=== PATIENT | female | born 1930 | race Asian ===

== ENCOUNTER 2018-02-18 19:55 | Inpatient (IN) | payer MEDICARE, MEDICAID ==
--- NOTE | 2018-02-18 20:26 | ED Physician Chart ---
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 Patient stated that she tripped and fell while moving a chair. She denied loss of consciousness. She had a tender spot on the right parietal area with a pain level of 5/10. The right chest cage pain level was 7/10. Allergies:: Allergies Allergy/AdvReac Type Severity Reaction Status Date / Time Penicillins Allergy Verified 02/18/18 20:05 Vitals:: Vital Signs - 8 hr 02/18/18 19:55 Temp 98.6 F HR 60 RR 18 BP 138/67 O2 Sat % 96 ED Review of Systems - Review of Systems General/Constitutional: No fever, No chills Skin: Bruising Head: Headache Eyes: No pain ENT: No nasal drainage Neck: No neck pain Cardio Vascular: Chest pain Pulmonary: No SOB GI: No nausea, No vomiting Musculoskeletal: Bone or joint pain Neurological: Weakness ED Past Medical History - Past Medical History Past Medical History: HTN, CVA/TIA, PUD/GERD, Other (Dysphagia, falls) Social History: Non Smoker, No Alcohol, No Drug Use Family Medical History - Family Member Mother History Unknown: Yes Ethnicity: Non- Hx Family Cancer: Yes Hx Family Hypertension: Yes ED Physical Exam - Physical Examination General/Constitutional: Awake, Alert Other Head comments:: A tender hematoma on the right parietal scalp Eyes: PERRL Skin: Well hydrated ENMT: Nasal exam nl Neck: No nuchal rigidity Respiratory: Clear to Auscultation Other Respiratory comments:: right lateral chest wall tenderness Cardio Vascular: RRR, No murmur, gallop, rubs, NL S1 S2 GI: No tenderness/rebounding/guarding Extremities: normal strength in all extremities Other Neuro/Psych comments:: unsteady gait ED Labs/Radiology/EKG Results - Lab Results Results: Laboratory Last Values WBC 8.7 Th/cmm (4.8-10.8) 02/19/18 05:50 RBC 4.14 Mil/cmm (3.80-5.20) 02/19/18 05:50 Hgb 12.8 gm/dL (12-16) 02/19/18 05:50 Hct 36.3 % (41.0-60) L 02/19/18 05:50 MCV 87.8 fl (81-100) 02/19/18 05:50 MCH 31.1 pg (27.0-31.0) H 02/19/18 05:50 MCHC Differential 35.4 pg (28.0-36.0) 02/19/18 05:50 RDW 11.2 % (11.5-20.0) L 02/19/18 05:50 Plt Count 152 Th/cmm (150-400) 02/19/18 05:50 MPV 7.6 fl 02/19/18 05:50 Neutrophils % 73.3 % (40.0-80.0) 02/19/18 05:50 Lymphocytes % 17.1 % (20.0-50.0) L 02/19/18 05:50 Monocytes % 8.0 % (2.0-10.0) 02/19/18 05:50 Eosinophils % 1.1 % (0.0-5.0) 02/19/18 05:50 Basophils % 0.5 % (0.0-2.0) 02/19/18 05:50 Sodium 138 mEq/L (136-145) 02/19/18 05:50 Potassium 4.1 mEq/L (3.5-5.1) 02/19/18 05:50 Chloride 106 mEq/L (98-107) 02/19/18 05:50 Carbon Dioxide 25.0 mEq/L (21.0-31.0) 02/19/18 05:50 Anion Gap 11.1 (7.0-16.0) 02/19/18 05:50 BUN 14 mg/dL (7-25) 02/19/18 05:50 Creatinine 0.6 mg/dL (0.6-1.2) 02/19/18 05:50 Est GFR ( Amer) TNP 02/19/18 05:50 Est GFR (Non-Af Amer) TNP 02/19/18 05:50 BUN/Creatinine Ratio 23.3 02/19/18 05:50 Glucose 139 mg/dL (70-105) H 02/19/18 05:50 Calcium 9.2 mg/dL (8.6-10.3) 02/19/18 05:50 Total Bilirubin 0.6 mg/dL (0.3-1.0) 02/19/18 05:50 AST 17 U/L (13-39) 02/19/18 05:50 ALT 18 U/L (7-52) 02/19/18 05:50 Alkaline Phosphatase 93 U/L (34-104) 02/19/18 05:50 Troponin I < 0.01 ng/mL (0.01-0.05) L 02/18/18 20:35 B-Natriuretic Peptide 26.0 pg/mL (5.0-100.0) 02/18/18 20:35 Total Protein 6.2 gm/dL (6.0-8.3) 02/19/18 05:50 Albumin 3.9 gm/dL (3.7-5.3) 02/19/18 05:50 Globulin 2.3 gm/dL 02/19/18 05:50 Albumin/Globulin Ratio 1.7 (1.0-1.8) 02/19/18 05:50 Triglycerides 309 mg/dL (<150) H 02/19/18 05:50 Cholesterol 170 mg/dL (<200) 02/19/18 05:50 LDL Cholesterol Direct 80 mg/dL (75-193) 02/19/18 05:50 HDL Cholesterol 34 mg/dL (23-92) 02/19/18 05:50 TSH 0.76 uIU/ml (0.34-5.60) 02/19/18 05:50 Urine Source RANDOM 02/18/18 21:20 Urine Color YELLOW 02/18/18 21:20 Urine Clarity CLEAR (CLEAR) 02/18/18 21:20 Urine pH 7.0 (4.6 - 8.0) 02/18/18 21:20 Ur Specific [place] 1.010 (1.005-1.030) 02/18/18 21:20 Urine Protein NEGATIVE mg/dL (NEGATIVE) 02/18/18 21:20 Urine Glucose (UA) NEGATIVE mg/dL (NEGATIVE) 02/18/18 21:20 Urine Ketones NEGATIVE mg/dL (NEGATIVE) 02/18/18 21:20 Urine Blood TRACE (NEGATIVE) 02/18/18 21:20 Urine Nitrate NEGATIVE (NEGATIVE) 02/18/18 21:20 Urine Bilirubin NEGATIVE (NEGATIVE) 02/18/18 21:20 Urine Urobilinogen 0.2 E.U./dL (0.2 - 1.0) 02/18/18 21:20 Ur Leukocyte Esterase NEGATIVE (NEGATIVE) 02/18/18 21:20 Urine RBC 2-5 /hpf (0-5) 02/18/18 21:20 Urine WBC 0-2 /hpf (0-5) 02/18/18 21:20 Ur Epithelial Cells FEW /lpf (FEW) 02/18/18 21:20 Urine Bacteria OCCASIONAL /hpf (NONE SEEN) 02/18/18 21:20 - Radiology Results Results: CT head wo contrast: right parietal scalp hematoma CT chest wo contrast: No acute fracture of chest ribs - EKG Interpretations EKG Time:: 20:38 Rate & Rhythm: 64 bpm, sinus rhythm [place]: normal P axis Intervals: MD 187, QRS 98 ED Assessment - Assessment General Assessment: Right parietal scalp hematoma Right chest wall pain, ruled out rib fracture Frequent falls likely due to unsteady gait Assessment/Comments:: CBC, CMP, UA CT head wo contrast CT chest wo contrast ED Septic Shock - . Is Septic Shock (SBP<90, OR Lactate>4 mmol\L) present?: No - <6hrs of presentation: Vital Signs: Vital Signs - 8 hr 02/18/18 19:55 Temp 98.6 F HR 60 RR 18 BP 138/67 O2 Sat % 96 ED Reassessment (Disposition) - Reassessment Reassessment Condition:: Unchanged - Patient Disposition Discharge/Transfer:: Acute Care w/in this hosp Admitting Medical Physician:: Herbert Alegria
[2018-02-18 20:45] LABS: % BASOPHILS 0.6 % (0.0-2.0); % EOSINOPHILS 0.7 % (0.0-5.0); % LYMPHOCYTES 14.4 % (20.0-50.0); % MONOCYTES 7.2 % (2.0-10.0); % NEUTROPHILS 77.1 % (40.0-80.0); BASOPHILE ABSOLUTE 0.1 Th/cumm (0-0.2); EOSINOPHILE ABSOLUTE 0.1 Th/cmm (0.1-0.4); HEMATOCRIT 36.1 % (41.0-60); HEMOGLOBIN 12.8 gm/dL (12-16); LYMPHOCYTE ABSOLUTE 1.3 Th/cmm (1.5-3.0); MEAN CELL VOLUME 87.3 fl (81-100); MEAN CORPUSCULAR HEMOGLOBIN 30.9 pg (27.0-31.0); MEAN CORPUSCULAR HGB CONC 35.4 pg (28.0-36.0); MONOCYTE ABSOLUTE 0.7 Th/cmm (0.3-1.0); PLATELET COUNT 168 Th/cmm (150-400); RED BLOOD COUNT 4.13 Mil/cmm (3.80-5.20); RED CELL DISTRIBUTION WIDTH 11.7 % (11.5-20.0); WHITE BLOOD COUNT 9.2 Th/cmm (4.8-10.8)
[2018-02-18 21:00] LABS: ALB/GLOB RATIO 1.6 (1.0-1.8); ALBUMIN 4.1 gm/dL (3.7-5.3); ALKALINE PHOSPHATASE 105 U/L (34-104); ANION GAP 11.4 (7.0-16.0); BILIRUBIN,TOTAL 0.5 mg/dL (0.3-1.0); BUN - UREA NITROGEN 17 mg/dL (7-25); CALCIUM SERUM 9.2 mg/dL (8.6-10.3); CARBON DIOXIDE 25.8 mEq/L (21.0-31.0); CHLORIDE 103 mEq/L (98-107); CREATININE - SERUM 0.8 mg/dL (0.6-1.2); GLUCOSE 177 mg/dL (70-105); POTASSIUM SERUM 4.2 mEq/L (3.5-5.1); SGOT 17 U/L (13-39); SGPT/ALT 20 U/L (7-52); SODIUM SERUM 136 mEq/L (136-145); TOTAL PROTEIN,SERUM 6.7 gm/dL (6.0-8.3)
[2018-02-18 21:44] LABS: URINE SOURCE RANDOM
[2018-02-18 21:46] LABS: URINE BILIRUBIN NEGATIVE (NEGATIVE); URINE BLOOD TRACE (NEGATIVE); URINE GLUCOSE (UA) NEGATIVE (NEGATIVE); URINE KETONE NEGATIVE (NEGATIVE); URINE LEUKOCYTE ESTERASE NEGATIVE (NEGATIVE); URINE MICROSCOPIC INDICATED? YES; URINE NITRATE NEGATIVE (NEGATIVE); URINE PROTEIN NEGATIVE (NEGATIVE); URINE UROBILINOGEN 0.2 E.U./dL (0.2 - 1.0)
[2018-02-18 21:48] LABS: URINE CLARITY CLEAR (CLEAR); URINE COLOR YELLOW
[2018-02-18 21:51] LABS: URINE WBC 0-2 /hpf (0-5)
[2018-02-18 21:52] LABS: URINE BACTERIA OCCASIONAL /hpf (NONE SEEN); URINE EPITHELIAL CELLS FEW /lpf (FEW)
[2018-02-18 23:46] VITALS: BP 146/74
[2018-02-19 06:17] LABS: % BASOPHILS 0.5 % (0.0-2.0); % EOSINOPHILS 1.1 % (0.0-5.0); % LYMPHOCYTES 17.1 % (20.0-50.0); % NEUTROPHILS 73.3 % (40.0-80.0); EOSINOPHILE ABSOLUTE 0.1 Th/cmm (0.1-0.4); HEMATOCRIT 36.3 % (41.0-60); HEMOGLOBIN 12.8 gm/dL (12-16); LYMPHOCYTE ABSOLUTE 1.5 Th/cmm (1.5-3.0); MEAN CELL VOLUME 87.8 fl (81-100); MEAN CORPUSCULAR HEMOGLOBIN 31.1 pg (27.0-31.0); MEAN CORPUSCULAR HGB CONC 35.4 pg (28.0-36.0); MEAN PLATELET VOLUME 7.6 fl; MONOCYTE ABSOLUTE 0.7 Th/cmm (0.3-1.0); NEUTROPHILE ABSOLUTE 6.4 Th/cmm (1.8-8.0); PLATELET COUNT 152 Th/cmm (150-400); RED BLOOD COUNT 4.14 Mil/cmm (3.80-5.20); RED CELL DISTRIBUTION WIDTH 11.2 % (11.5-20.0); WHITE BLOOD COUNT 8.7 Th/cmm (4.8-10.8)
[2018-02-19 06:39] LABS: ALB/GLOB RATIO 1.7 (1.0-1.8); ALBUMIN 3.9 gm/dL (3.7-5.3); ALKALINE PHOSPHATASE 93 U/L (34-104); ANION GAP 11.1 (7.0-16.0); BILIRUBIN,TOTAL 0.6 mg/dL (0.3-1.0); BUN - UREA NITROGEN 14 mg/dL (7-25); CALCIUM SERUM 9.2 mg/dL (8.6-10.3); CHLORIDE 106 mEq/L (98-107); CHOLESTEROL 170 mg/dL (<200); CREATININE - SERUM 0.6 mg/dL (0.6-1.2); GLUCOSE 139 mg/dL (70-105); HDL -HIGH DENSITY LIPOPROTEIN 34 mg/dL (23-92); POTASSIUM SERUM 4.1 mEq/L (3.5-5.1); SGOT 17 U/L (13-39); SGPT/ALT 18 U/L (7-52); SODIUM SERUM 138 mEq/L (136-145); TOTAL PROTEIN,SERUM 6.2 gm/dL (6.0-8.3); TRIGLYCERIDES 309 mg/dL (<150)
--- NOTE | 2018-02-19 08:43 | Diagnostic Imaging Report ---
Head CT without intravenous contrast Indication: Trauma Comparison: 11/14/2017 Technique: Axial images were obtained from the vertex to the skull base without IV contrast. Coronal reconstructions were made. Total DLP: 656 [id number] FINDINGS: Images of the brain obtained without contrast demonstrate no evidence of an acute hemorrhage. Atrophy is noted. Mild white matter disease is noted. The ventricles and basal cisterns are patent. No mass effect or midline shift. There is soft tissue swelling along the right posterior scalp area of high density measuring 1.0 x 0.6 cm. There is mild mucosal thickening of paranasal sinuses. No skull fractures identified. IMPRESSION: No evidence of an acute intracranial hemorrhage. Soft tissue swelling along the right posterior scalp with high density area measuring 1.0 x 0.6 cm which may be posttraumatic and represent a small scalp hematoma. No evidence of a skull fracture. Atrophy. Mild supratentorial white matter disease which is nonspecific and may be due to chronic microvessel ischemia.
--- NOTE | 2018-02-19 08:58 | Diagnostic Imaging Report ---
CT Chest without IV contrast HISTORY: right rib Cage pain status post fall COMPARISON: Chest x-ray 11/14/2017. Technique: Axial images were obtained from the base of the neck to the upper abdomen without IV contrast. Reconstructions were made. Total DLP 198 CTDI 5.9 Findings: Evaluation of the mediastinum is limited due to lack of IV contrast. A few borderline prominent mediastinal lymph nodes are seen greatest along the prevascular region measuring 1.0 x 0.4 cm. The ascending aorta measures up to 3.5 cm. Mild atherosclerosis is noted. Trace fluid is seen along the aortic recesses. Heart size is normal. No evidence of a pericardial effusion. Tortuous thoracic aorta is noted. Evaluation of the lungs demonstrates mild chronic lung changes hypodense and atelectatic changes throughout the lungs. No focal consolidation or pleural effusions. There is a 6 mm nodular density of the right lung base. Additional left anterior basal pleural thickening is noted measuring 6 mm. Degenerative changes of the spine are noted. Osteopenia is noted. Note that the left inferior T12 rib is incompletely visualized on this exam. No rib fractures are identified. No evidence of pneumothorax. Upper abdomen demonstrates partially visualized low-density left renal lesion. IMPRESSION: No evidence of the acute fracture. Note that the left 12th inferior rib is incompletely visualized No evidence of pneumothorax. Atelectatic lung changes with no focal consolidation identified. There is a 6 mm nodular density of the right lung base. Left basal anterior 6 mm pleural thickening is also noted. Findings are nonspecific and may be due to infectious or inflammatory process. Neoplastic process cannot be completely excluded. Please correlate with clinical history old exams. Follow-up CT surveillance in 4-6 months is recommended for further assessment/monitoring. Tortuous aorta with mild atherosclerosis. Borderline prominent mediastinal lymph nodes, nonspecific and possibly reactive. Left renal cystic lesion. Further assessment either CT with IV contrast or ultrasound is recommended.
--- NOTE | 2018-02-19 11:49 | Diagnostic Imaging Report ---
Carotid ultrasound HISTORY: Recurrent falls COMPARISON: None Technique: Longitudinal and transverse sonographic sector images of the carotid arteries were obtained with doppler analysis. FINDINGS: Exam of the right side demonstrates intimal thickening and mild generalized atherosclerotic vascular disease. Exam of the left side demonstrates intimal thickening mild generalized atherosclerotic vascular disease. Incidentally noted are solid and cystic thyroid nodules. On the right, the largest measures 1.1 x 1.1 cm and appears to demonstrate primarily solid components. On the left, the largest measures 1.6 x 2.3 cm and is primarily cystic containing a septation. IMPRESSION: Mild atherosclerotic vascular disease. No evidence of hemodynamically significant stenosis. Bilateral thyroid nodules incidentally noted. A dedicated thyroid ultrasound is recommended for further assessment of this finding.
[2018-02-19] MEDS: Polyvinyl Alcohol Ophth Soln 15 mL Bottle RIGHT EYE SCH (17:03)
--- NOTE | 2018-02-19 17:10 | Cardiology ---
02/19/[address] Alegria. PROCEDURE: Echocardiogram. M-MODE ECHOCARDIOGRAM: Mitral valve, anterior leaflet of mitral valve shows normal excursion, EF velocity. Posterior leaflet of mitral valve shows normal excursion. Left ventricle posterior wall shows increased thickness, normal excursion. Interventricular septum shows increased thickness, normal excursion, hypertrophy of the left ventricle, ejection fraction 63%. Left atrium normal. Aortic root shows normal dimension, normal excursion of aortic leaflets. 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 2D ECHO: Long axis view showed normal sized left ventricle with hypertrophy of the left ventricle. Left atrium normal. Aortic root shows normal dimension, normal excursion of aortic leaflets. Short axis view of mitral valve normal. Short axis view of aortic valve normal. Apical four chamber view showed normal sized left ventricle, left atrium, right ventricle, right atrium, tricuspid and mitral valve. Ejection fraction 63%. CONCLUSION: Normal 2D echo, hypertrophy of the left ventricle, ejection fraction 63%. Doppler study shows trace mitral regurgitation, moderate aortic regurgitation, mild tricuspid regurgitation, moderate pulmonary regurgitation. [facility]# [id number]
--- NOTE | 2018-02-19 22:43 | History & Physical ---
ADMIT DATE: 02/19/2018 HISTORY OF PRESENT ILLNESS: This is an 87-year-old female. The patient came from the long-term because of having head trauma as well as complaining of dizziness and complaining of right chest cage pain when the patient tripped over and fell down. The patient is also complaining of dizziness. The patient had a tender spot on her parietal area and right chest cage level was having tenderness. The patient had no fever, no skin bruising is present. No nasal problem. Complaining of chest pain. The patient also complained of bone pain and complained of weakness. The patient does have a history of hypertension, history of severe peptic ulcer disease, and history of falls. PHYSICAL EXAMINATION: GENERAL: The patient is awake, alert. HEAD: The patient has tender hematoma in the right parietal scalp. Head examination was normal otherwise. HEENT: Normal. NECK: Supple. LUNGS: Clear. CARDIOVASCULAR: S1, S2. Systolic murmur heard. SKIN: The patient has a right lateral chest wall tenderness. LUNGS: Clear. EXTREMITIES: Revealed no tenderness and the patient has unsteady gait. LABORATORY DATA: The patient's hemoglobin was 12.8, hematocrit was 36. WBC was 8.7. The patient urine also showed a trace blood as well as some evidence of infection. CAT scan showed right parietal scalp hematoma, no other changes and the patient's EKG showed sinus bradycardia of 64 and the patient QRS was 98, ID interval is 187. DIAGNOSES: History of trip and fall, history of right parietal scalp hematoma, head trauma, history of right chest wall pain, rule out rib fracture, history of frequent falls, unsteady gait rule out mitral regurgitation, aortic valve stenosis and history of prior cerebrovascular accident, history of prior transient ischemic attack, history of hypertension, peptic ulcer disease was made. PLAN: The patient is being admitted. I will have neurological workup and Dr. Scherer see the patient. We will also have cardiological workup, Dr. Crow Swift. We are going to start him on medication for a urinary tract infection. I will follow the patient. JOB# [id number]
[2018-02-20] MEDS: Pantoprazole 40 mg/Packet PO SCH (06:37)
[2018-02-20] MEDS: Multivitamin Tab PO SCH (08:36)
[2018-02-20] MEDS: Polyvinyl Alcohol Ophth Soln 15 mL Bottle RIGHT EYE SCH ×2 (08:36→17:13)
--- NOTE | 2018-02-20 09:22 | Diagnostic Imaging Report ---
Right rib series 3 views Indication: Pain, status post fall Comparison: CT of the chest on 02/18/2017 Findings: Advanced degenerative change of the spine are noted. There is subtle irregularity of the right lower rib possibly the right eighth rib laterally. This may have been related to previous trauma possibly a nondisplaced fracture. The visualized lung hernandez demonstrate no focal consolidation. IMPRESSION: Subtle irregularity of right lower rib, possibly the eighth rib laterally. This is indeterminate. An age-indeterminate nondisplaced fracture cannot be excluded. Please correlate with clinical findings and point tenderness in this region. In the setting of trauma, if clinical symptoms persist and there is continued concern for an occult fracture, follow up exams in 5-7 days is suggested.
--- NOTE | 2018-02-20 16:16 | General Progress Note ---
Subjective - Review of Systems Subjective: pt. s/p fall at group home, c/o's of dizziness, right chest wall pain, no fever Objective - Results Result Diagrams: 02/19/18 05:50 02/19/18 05:50 Recent Labs: Laboratory Last Values WBC 8.7 Th/cmm (4.8-10.8) 02/19/18 05:50 RBC 4.14 Mil/cmm (3.80-5.20) 02/19/18 05:50 Hgb 12.8 gm/dL (12-16) 02/19/18 05:50 Hct 36.3 % (41.0-60) L 02/19/18 05:50 MCV 87.8 fl (81-100) 02/19/18 05:50 MCH 31.1 pg (27.0-31.0) H 02/19/18 05:50 MCHC Differential 35.4 pg (28.0-36.0) 02/19/18 05:50 RDW 11.2 % (11.5-20.0) L 02/19/18 05:50 Plt Count 152 Th/cmm (150-400) 02/19/18 05:50 MPV 7.6 fl 02/19/18 05:50 Neutrophils % 73.3 % (40.0-80.0) 02/19/18 05:50 Lymphocytes % 17.1 % (20.0-50.0) L 02/19/18 05:50 Monocytes % 8.0 % (2.0-10.0) 02/19/18 05:50 Eosinophils % 1.1 % (0.0-5.0) 02/19/18 05:50 Basophils % 0.5 % (0.0-2.0) 02/19/18 05:50 Sodium 138 mEq/L (136-145) 02/19/18 05:50 Potassium 4.1 mEq/L (3.5-5.1) 02/19/18 05:50 Chloride 106 mEq/L (98-107) 02/19/18 05:50 Carbon Dioxide 25.0 mEq/L (21.0-31.0) 02/19/18 05:50 Anion Gap 11.1 (7.0-16.0) 02/19/18 05:50 BUN 14 mg/dL (7-25) 02/19/18 05:50 Creatinine 0.6 mg/dL (0.6-1.2) 02/19/18 05:50 Est GFR ( Amer) TNP 02/19/18 05:50 Est GFR (Non-Af Amer) TNP 02/19/18 05:50 BUN/Creatinine Ratio 23.3 02/19/18 05:50 Glucose 139 mg/dL (70-105) H 02/19/18 05:50 Calcium 9.2 mg/dL (8.6-10.3) 02/19/18 05:50 Total Bilirubin 0.6 mg/dL (0.3-1.0) 02/19/18 05:50 AST 17 U/L (13-39) 02/19/18 05:50 ALT 18 U/L (7-52) 02/19/18 05:50 Alkaline Phosphatase 93 U/L (34-104) 02/19/18 05:50 Troponin I < 0.01 ng/mL (0.01-0.05) L 02/18/18 20:35 B-Natriuretic Peptide 26.0 pg/mL (5.0-100.0) 02/18/18 20:35 Total Protein 6.2 gm/dL (6.0-8.3) 02/19/18 05:50 Albumin 3.9 gm/dL (3.7-5.3) 02/19/18 05:50 Globulin 2.3 gm/dL 02/19/18 05:50 Albumin/Globulin Ratio 1.7 (1.0-1.8) 02/19/18 05:50 Triglycerides 309 mg/dL (<150) H 02/19/18 05:50 Cholesterol 170 mg/dL (<200) 02/19/18 05:50 LDL Cholesterol Direct 80 mg/dL (75-193) 02/19/18 05:50 HDL Cholesterol 34 mg/dL (23-92) 02/19/18 05:50 TSH 0.76 uIU/ml (0.34-5.60) 02/19/18 05:50 Urine Source RANDOM 02/18/18 21:20 Urine Color YELLOW 02/18/18 21:20 Urine Clarity CLEAR (CLEAR) 02/18/18 21:20 Urine pH 7.0 (4.6 - 8.0) 02/18/18 21:20 Ur Specific [place] 1.010 (1.005-1.030) 02/18/18 21:20 Urine Protein NEGATIVE mg/dL (NEGATIVE) 02/18/18 21:20 Urine Glucose (UA) NEGATIVE mg/dL (NEGATIVE) 02/18/18 21:20 Urine Ketones NEGATIVE mg/dL (NEGATIVE) 02/18/18 21:20 Urine Blood TRACE (NEGATIVE) 02/18/18 21:20 Urine Nitrate NEGATIVE (NEGATIVE) 02/18/18 21:20 Urine Bilirubin NEGATIVE (NEGATIVE) 02/18/18 21:20 Urine Urobilinogen 0.2 E.U./dL (0.2 - 1.0) 02/18/18 21:20 Ur Leukocyte Esterase NEGATIVE (NEGATIVE) 02/18/18 21:20 Urine RBC 2-5 /hpf (0-5) 02/18/18 21:20 Urine WBC 0-2 /hpf (0-5) 02/18/18 21:20 Ur Epithelial Cells FEW /lpf (FEW) 02/18/18 21:20 Urine Bacteria OCCASIONAL /hpf (NONE SEEN) 02/18/18 21:20 - Physical Exam Vitals and I&O: Vital Signs Temp 98.2 F 02/20/18 11:37 Pulse 61 02/20/18 11:37 Resp 18 02/20/18 11:37 BP 111/49 02/20/18 11:37 Pulse Ox 96 02/20/18 11:37 Intake & Output 02/19/18 02/20/18 02/20/18 18:59 06:59 18:59 Intake Total 1040 Balance 1040 Weight (lbs) 68.492 kg Intake: Oral 1040 Other: # Voids 3 # Bowel Movements 1 Stool Characteristics Soft Formed Weight Source Bedscale Active Medications: Current Medications Acetaminophen (Tylenol) 325 mg PO Q4HR PRN PRN Reason: Pain or Fever >101 Stop: 04/20/18 13:43 Artificial Tears (Artificial Tears Ophth Soln) 2 drop RIGHT EYE BID [facility] Stop: 04/20/18 16:59 Last Admin: 02/20/18 08:36 Dose: 2 drop Aspirin (Aspirin) 325 mg PO DAILY PATRIA Stop: 04/21/18 08:59 Last Admin: 02/20/18 08:36 Dose: 325 mg Metoprolol Tartrate (Lopressor) 25 mg PO BID [facility] Stop: 04/20/18 16:59 Last Admin: 02/20/18 08:36 Dose: Not Given Multivitamins/Vitamin C (Theragran) 1 tab PO DAILY PATRIA Stop: 04/21/18 08:59 Last Admin: 02/20/18 08:36 Dose: 1 tab Pantoprazole Sodium (Protonix) 40 mg PO QDAC [facility] Stop: 04/21/18 07:29 Last Admin: 02/20/18 06:37 Dose: 40 mg General: Alert, Oriented x3, No acute distress HEENT: Atraumatic, PERRLA, EOMI Neck: Supple Cardiovascular: Regular rate Lungs: Clear to auscultation Abdomen: Bowel sounds - Procedures Procedures: Procedures Procedure Code Date INTRODUCTION OF SERUM/TOX/VACCINE INTO MUSCLE, PERC APPROACH [id number] 11/14/17 Assessment/Plan - Assessment Assessment: h/o falls h/o right chest wall pain r/o rib fracture unsteady gait h/o CVA/TIA PUD - Plan Plan: cpm will monitor
--- NOTE | 2018-02-20 18:23 | Consultation ---
DATE OF CONSULTATION: 02/18/[address] Alegria. HISTORY OF PRESENT ILLNESS: This is an 87-year-old oriental female patient who has been complaining of dizziness. Following this, the patient has a fall and the patient has hematoma on the parietal area. The patient is admitted and cardiac consult is requested. PAST MEDICAL HISTORY: The patient has a history of anemia and osteoporosis. FAMILY HISTORY: Unremarkable. SOCIAL HISTORY: No history of smoking, alcohol abuse. ALLERGIES: No known allergies. PHYSICAL EXAMINATION: VITAL SIGNS: Blood pressure 120/80, pulse 70, and respirations 20. HEAD: The patient has hematoma on the scalp. EYES: Pupils equal, reactive to light. Fundi show AV nicking, sclerae white, conjunctivae pink. NECK: Carotid 2+. Normal upstroke. JVD flat. Thyroid not palpable. Lymph nodes not palpable. CHEST: Shows increased AP diameter. No kyphosis, scoliosis. LUNGS: Bilateral bronchovesicular breath sounds. HEART: PMI fifth intercostal space with lateral to midclavicular line. S1, S2. No S3, S4, soft systolic murmur. ABDOMEN: Soft. Liver and spleen not palpable. No organomegaly. Bowel sounds active. NEUROLOGIC: The patient has vertigo. CLINICAL IMPRESSION: 1. Syncope. 2. Parietal hematoma. 3. Osteoporosis. 4. Diabetes mellitus type 2. 5. Severe tricuspid regurgitation. The patient will be evaluated with an echocardiogram. JOB# [id number]
[2018-02-21] MEDS: Pantoprazole 40 mg/Packet PO SCH (07:28)
[2018-02-21] MEDS: Multivitamin Tab PO SCH (11:25)
[2018-02-21] MEDS: Polyvinyl Alcohol Ophth Soln 15 mL Bottle RIGHT EYE SCH (11:29)
--- NOTE | 2018-02-22 00:12 | Consultation ---
DATE OF CONSULTATION: 02/21/2018 HISTORY OF PRESENT ILLNESS: An 87-year-old female came from [facility]. Apparently, the patient fell and hit the head. She complains of dizziness and unsteadiness. No definite loss of consciousness, but she was unsteady. She complains of pain on the top of the head. Now, she is walking with physical therapy. PAST MEDICAL HISTORY: Hypertension and peptic ulcer disease. REVIEW OF SYSTEMS: The patient says that she has difficulty walking and tendency to fall. MEDICATIONS: Per reconciliation. REVIEW OF SYSTEMS: Twelve-point negative except for above. PHYSICAL EXAMINATION: VITAL SIGNS: Temperature 98.4, blood pressure 130/70, and pulse 74. NECK: Supple. neck bruits. HEART: The patient has normal heart sounds. Systolic murmur. LUNGS: Clear. The patient has tenderness over the chest wall on the right. ABDOMEN: Soft. NEUROLOGIC: Awake. She has limited Slovenian, but with little Slovenian and the gesture, she is able to interact gives me her name. Able to name simple objects. CRANIAL: Pupils react to light. Full eye movement, no nystagmus. No facial weakness. MOTOR: She will lift both arms up. She will lift both legs up. Reflexes about 1+ upper extremities. Knees are about 2+ to -3 and ankles 1. Question of withdrawal of the toes versus Babinski. INVESTIGATIONS: CT scan head, right parietal scalp hematoma. IMPRESSION: 1. Fall. 2. The patient with ataxia. 3. On exam, some hyperreflexia in the lower extremity. Rule out cervical issue. 4. History of hypertension. 5. History of peptic ulcer disease. The patient's investigation, we will go ahead and do an MRI of the cervical spine, lab studies, and carotid Doppler studies. Carotid Doppler studies done shows mild disease, but no hemodynamic stenosis. JOB# [id number]
== END 2018-02-21 14:15 | DRG 308 ==
LOC: ER 19:55 → MSI 22:16
PROVIDERS: ADMIT Internal Medicine; ATTEND Internal Medicine
DX: I49.9 Cardiac arrhythmia, unspecified (principal); G93.40 Encephalopathy, unspecified; S00.03XA Contusion of scalp, initial encounter; Z86.73 Personal history of transient ischemic attack (TIA), and cerebral infarction without residual deficits; Z88.0 Allergy status to penicillin; I10 Essential (primary) hypertension; K21.9 Gastro-esophageal reflux disease without esophagitis; W18.39XA Other fall on same level, initial encounter; Y93.89 Activity, other specified; Y92.89 Other specified places as the place of occurrence of the external cause; Y99.8 Other external cause status; R07.89 Other chest pain; M81.0 Age-related osteoporosis without current pathological fracture; R55 Syncope and collapse; I07.1 Rheumatic tricuspid insufficiency; R27.0 Ataxia, unspecified
CPT/HCPCS: 36415-UA; 70450-TC; 71101-TC-RT; 71250-TC; 80053-TC; 80061-TC; 81001-TC; 83880-TC; 84443-TC; 84484-TC; 85025-TC; 93005; 93880-TC; 97530; X3904; Z7610